=== PATIENT | male | born 1990 | race Caucasian/White ===

== ENCOUNTER 2017-10-25 11:45 | Emergency (ER) | payer SELFPAY ==
[~2017-10-25] VITALS: Ht 180.3 cm; Wt 70.8 kg
[2017-10-25 11:56] VITALS: Ht 180.3 cm; Wt 70.8 kg
[2017-10-25 15:09] VITALS: BP 124/68
== END 2017-10-25 15:09 | disposition home or self-care (01) ==
LOC: ED 11:45
DX: J18.9 Pneumonia, unspecified organism (principal)
CPT/HCPCS: J1885; J7613; J7644

== ENCOUNTER 2018-11-20 20:25 | Emergency (ER) | payer SELFPAY ==
[~2018-11-20] VITALS: Ht 170.2 cm; Wt 86.2 kg
[2018-11-20 20:58] VITALS: Ht 170.2 cm; Wt 86.2 kg
[2018-11-20 21:48] LABS: BASOPHIL % 0.8 % (0-2); PLATELET COUNT 228 x10^3mcL (130-400); RED CELL DISTRIBUTION WIDTH 12.7 % (11.5-14.5)
[2018-11-20 21:57] LABS: CALCIUM 8.2 mg/dL (8.5-10.1); CHLORIDE SERUM 107 mmol/L (98-107); CREATININE SERUM 0.7 mg/dL (0.7-1.3); GFR1 > 60 mL/min; GLUCOSE SERUM 89 mg/dL (74-106); POTASSIUM SERUM 3.7 mmol/L (3.5-5.1); SODIUM SERUM 144 mmol/L (136-145)
[2018-11-20 22:15] LABS: ALBUMIN 3.6 g/dL (3.4-5.0); ALKALINE PHOSPHATASE 77 U/L (46-116); ALT/SGPT 72 U/L (16-63); AST/SGOT 15 U/L (15-37); BILIRUBIN TOTAL 0.6 mg/dL (0.20-1.00); FREE T4 0.84 ng/dL (0.76-1.46); TOTAL PROTEIN, SERUM 6.3 g/dL (6.4-8.2)
[2018-11-21 07:11] VITALS: BP 101/59
== END 2018-11-21 06:37 | disposition home or self-care (01) ==
LOC: ED 20:25
PROVIDERS: Emergency Medicine
DX: F15.129 Other stimulant abuse with intoxication, unspecified (principal); F29 Unspecified psychosis not due to a substance or known physiological condition; K02.9 Dental caries, unspecified
CPT/HCPCS: 36415; 84439; G0480

== ENCOUNTER 2018-11-29 21:39 | Emergency (ER) | payer OTHER | END 2018-11-29 23:28 | disposition other institution (70) | LOC: ED 21:39 | DX: Z02.89 Encounter for other administrative examinations (principal) ==

== ENCOUNTER 2018-11-29 21:39 | Emergency (ER) | payer SELFPAY ==
[~2018-11-29] VITALS: Ht 180.3 cm; Wt 72.6 kg
[2018-11-29 22:16] VITALS: Ht 180.3 cm; Wt 72.6 kg
[2018-11-29 23:28] VITALS: BP 117/71
== END 2018-11-29 23:28 | disposition other institution (70) ==
LOC: ED 21:39
DX: S01.112A Laceration without foreign body of left eyelid and periocular area, initial encounter (principal); S09.8XXA Other specified injuries of head, initial encounter; S50.312A Abrasion of left elbow, initial encounter; W18.39XA Other fall on same level, initial encounter; Y93.89 Activity, other specified; Y92.89 Other specified places as the place of occurrence of the external cause; Y99.8 Other external cause status
CPT/HCPCS: 90715